=== PATIENT | female | born 1950 ===

== ENCOUNTER 2019-03-23 19:29 | Emergency (ER) | payer BC ==
--- NOTE | 2019-03-23 19:35 | UC ---
General HPI - HPI Summary HPI Summary: Pleasant 69 yo female accompanied by [id number], c/o progressive increase "feeling bad" and malaise x 6 days. Flew into [place] from [place] 6 days ago, denies trouble on the plane. Progressively worse today. Last po precise time unclear, lunch. Ibuprofen approx 15:30. ROS limited d/t very sick, conversation limited. GI / sx unclear. No rash. + cough. + sob. Heart racing. Without focal pain. - History of Current Complaint Stated Complaint: SOB Time Seen by Provider: 03/23/19 19:35 Hx Obtained From: Patient, Family/[employer] - Allergy/Home Medications Allergies/Adverse Reactions: Allergies Allergy/AdvReac Type Severity Reaction Status Date / Time No Known Allergies Allergy Verified 03/23/19 20:01 Home Medications: Home Medications Ibuprofen TAB* [Motrin TAB* 600 MG] 1 tab PO QID 03/23/19 [History Confirmed ] Lisinopril 1 tab PO DAILY 03/23/19 [History Confirmed 03/23/19] PMH/Surg Hx/FS Hx/Imm Hx Previously Healthy: Yes - denies dm, cardicac, recent sx - Family History Known Family History: Positive: Unknown - Social History Lives: With Family - visiting family from out of town Review of Systems All Other Systems Reviewed And Are Negative: Yes Constitutional: Positive: Other - see hpi Skin: Positive: Other - see hpi - ros limited Eyes: Positive: Other - see hpi - ros limited ENT: Positive: Other - see hpi - ros limited Respiratory: Positive: Shortness Of Breath, Cough Cardiovascular: Positive: Palpitations Gastrointestinal: Positive: Other - see hpi - ros limited Genitourinary: Positive: Other - see hpi - ros limited Motor: Positive: Weakness Neurovascular: Positive: Other - see hpi - ros limited Musculoskeletal: Positive: Other: - see hpi - ros limited Neurological: Positive: Other - see hpi - ros limited Psychological: Positive: Negative Is Patient Immunocompromised?: No Physical Exam Triage Information Reviewed: Yes Appearance: Well-Nourished, Ill-Appearing Vital Signs Reviewed: Yes Eye Exam: Normal - grossly ok perrla, tracks bilat ENT: Positive: Other - mucus membranes dry. airway patent Neck: Positive: Supple - moves neck with routine position change Respiratory Exam: Other - poor bilat insp effort + bilat rhonchi Respiratory: Positive: Decreased breath sounds, Crackles, Rhonchi Cardiovascular Exam: Other - HR 130's, correlates with L rad pulse Abdominal Exam: Other - + bs, soft, nondistended, no c/o pain Musculoskeletal Exam: Other - BLE + stigmata venous insuff, mild edema bilat. Distal ext's warm to touch R elbow and R hip discomfort - per daughterinlaw, started today, detailed exam not done d/t EMS transport Neurological Exam: Normal - grossly nonfocal, detailed exam not done facial expressions grossly symmetric. Psychological Exam: Normal - short sentances, very fatigued Psychological: Positive: Normal Response To Family Skin Exam: Other - not mottled, no visible or reported rash dry skin Course/Dx - Course Course Of Treatment: ST at 131 bpm. No old ekg for comp. IL 119 QTc 427 S/sx are concerning for sepsis with rapid heart rate and fever, sob. Diff dx however, is extensive, including pe, cardiac d/o, electrolyte imbalance, renal issues, etc. IV x 2 started by RN, NS bolus initiated, blood cx drawn. O2 administered. Rocephin started (denies known allergies, medication list as available without contraindications). Pt agrees to EMS, notified by RN. D/w Dr. Hernandes at time of transfer. - Diagnoses Provider Diagnosis: Fever, Volume depletion, Shortness of breath Discharge - Sign-Out/Discharge Documenting (check all that apply): Patient Departure All imaging exams completed and their final reports reviewed: No Studies - Discharge Plan Condition: Guarded Disposition: ADMITTED TO [facility] Referrals: No Primary Care Phys,NOPCP [Primary Care Provider] - - Billing Disposition and Condition Condition: GUARDED Disposition: Admitted to [facility]
[2019-03-23] MEDS ORDERED: NS 0.9% 1000 ML** 1,000 ML IV ONE (19:45)
[2019-03-23] MEDS ORDERED: cefTRIAXone VIAL(*) 1,000 MG VIAL IVPB ONE (19:46)
[2019-03-23 19:47] VITALS: BP 142/58
== END 2019-03-23 20:11 | disposition short-term general hospital (02) ==
LOC: UCEAST 19:29
DX: R06.02 Shortness of breath (principal); R50.9 Fever, unspecified; E86.9 Volume depletion, unspecified
CPT/HCPCS: 93005; 96360; 96365; 99203; G0463; J0696